=== PATIENT | female | born 2000 | race Two or more races ===

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

== ENCOUNTER 2021-02-11 16:09 | Emergency (ER) | payer MEDICAID, OTHER ==
[~2021-02-11] VITALS: Ht 152.4 cm; Wt 61.7 kg
[2021-02-11] MEDS ORDERED: AMOX875T2 PO (17:01)
--- NOTE | 2021-02-11 17:01 | NUR ---
Patient discharged to home in stable condition. Written and verbal after care instructions given. Patient verbalizes understanding of instructions. Stressed follow up or return to ER for worsening s/s.
== END 2021-02-11 17:05 | disposition home or self-care (01) ==
LOC: ER 16:09
DX: S09.22XA Traumatic rupture of left ear drum, initial encounter (principal); W26.8XXA Contact with other sharp object(s), not elsewhere classified, initial encounter; Y93.E8 Activity, other personal hygiene; Y92.89 Other specified places as the place of occurrence of the external cause
CPT/HCPCS: A4663

== ENCOUNTER 2021-05-07 16:24 | Emergency (ER) | payer MEDICAID ==
[~2021-05-07] VITALS: Ht 152.4 cm; Wt 64.9 kg
[~2021-05-07 16:24] MED LIST: AMOX875T2 PO
--- NOTE | 2021-05-07 16:46 | NUR ---
PATIENT WAS SEEN BY . URINE SENT TO LAB
[2021-05-07 17:06] LABS: BASOPHILS % (AUTO) 0.5 % (0.0-2.0); EOSINOPHILS # (AUTO) 0.1 K/uL (0.0-0.7); EOSINOPHILS % (AUTO) 0.7 % (0.0-7.0); HEMATOCRIT 41.4 % (31.2-41.9); HEMOGLOBIN 13.9 g/dL (10.9-14.3); LYMPHOCYTES # (AUTO) 2.9 K/uL (20.0-40.0); LYMPHOCYTES % (AUTO) 31.5 % (20.5-74.5); MEAN CORPUSCULAR HEMOGLOBIN 30.8 uug (24.7-32.8); MEAN CORPUSCULAR HGB CONC 34 g/dL (32.3-35.6); MEAN CORPUSCULAR VOLUME 91.8 fL (75.5-95.3); MONOCYTES # (AUTO) 0.9 K/uL (2.0-10.0); MONOCYTES % (AUTO) 9.6 % (0-11); NEUTROPHILS # (AUTO) 5.3 K/uL (1.8-8.9); NEUTROPHILS % (AUTO) 57.7 % (31.5-64.5); PLATELET COUNT (AUTO) 398 K/uL (179-408); RED BLOOD CELL COUNT(AUTO) 4.51 MIL/uL (3.63-4.92); WHITE BLOOD COUNT (AUTO) 9.1 K/uL (3.8-11.8)
[2021-05-07 17:08] LABS: CARBON DIOXIDE 31 mmol/L (21-32); CHLORIDE 104 mmol/L (98-107); CREATININE 0.7 mg/dL (0.6-1.3); GLUCOSE 89 mg/dL (74-106); UREA NITROGEN, BLOOD 9 mg/dL (7-18)
[2021-05-07 17:11] LABS: *BILIRUBIN,URIN NEGATIVE (NEGATIVE); *BLOOD, URINE NEGATIVE (NEGATIVE); *CLARITY,URINE SLIGHTLY CLOUDY (CLEAR); *COLOR,URINE LIGHT YELLOW (YELLOW); *KETONES,URINE NEGATIVE (NEGATIVE); *UROBILINOGEN,URINE 0.2 E.U./dl (NORMAL); LEUKOCYTE ESTERASE ,URINE NEGATIVE (NEGATIVE); NITRITE, URINE NEGATIVE (NEGATIVE); PH,URINE >=9.0 (5.0-8.0); UGLUCOSE NEGATIVE (NEGATIVE)
[2021-05-07 17:13] LABS: *URINE HCG, QUAL NEGATIVE (NEGATIVE)
[2021-05-07] MEDS ORDERED: CEFTRIAXONE 500 MG VIAL IM ONE (17:45)
[2021-05-07] MEDS ORDERED: LIDOCAINE HCL 1% 20 ML VIAL ONE (17:51)
[2021-05-07] MEDS ORDERED: CEFTRIAXONE 500 MG VIAL ONE (17:51)
[2021-05-07] MEDS ORDERED: DOXY100C41 PO (18:15)
[2021-05-07 18:24] LABS: BACTERIA,URINE NONE SEEN /HPF (NONE SEEN); RBC,URINE 0-3 /HPF (0-3); SQUAMOUS EPITHELIAL CELL,UR NONE SEEN /HPF (NONE SEEN); URINE AMORPHOUS PHOSPHATES MODERATE /HPF; WBC,URINE 0-3 /HPF (0-3)
--- NOTE | 2021-05-07 18:31 | NUR ---
DC, RX AND FOLLOW UP INSTRUCTIONS GIVEN AND EXPLAINED TO PATIENT WHO STATES SHE UNDERSTANDS ALL INSTRUCTIONS
== END 2021-05-07 18:32 | disposition home or self-care (01) ==
LOC: ER 16:26
DX: N72 Inflammatory disease of cervix uteri (principal); Z20.2 Contact with and (suspected) exposure to infections with a predominantly sexual mode of transmission
CPT/HCPCS: 36415; 80048; 81001; 84702; 84703; 85025; 86850; 86900; 86901; 87086; 87210; 87491; 96372; 99283; J0696; J3490; A4663

== ENCOUNTER 2024-08-23 23:22 | Emergency (ER) | payer OTHER ==
[~2024-08-23] VITALS: Ht 152.4 cm; Wt 78.5 kg
[~2024-08-23 23:22] MED LIST changes: +DOXY-326 PO
[2024-08-24] MEDS ORDERED: CYCLOBENZAPRINE HCL 10 MG TABLET ONE (00:20)
[2024-08-24] MEDS ORDERED: KETOROLAC TROMETHAMINE 30 MG INJ ONE (00:20)
[2024-08-24] MEDS ORDERED: IBUP-1955 PO (00:25)
[2024-08-24] MEDS ORDERED: CYCL5TAB PO (00:25)
[2024-08-24] MEDS: CYCLOBENZAPRINE HCL 10 MG TABLET PO ONE (00:30)
[2024-08-24] MEDS: KETOROLAC TROMETHAMINE 30 MG INJ IM ONE (00:30)
[2024-08-24 00:48] VITALS: BP 118/70; TEMP 97.7; O2SAT 98
== END 2024-08-24 00:40 | disposition home or self-care (01) ==
LOC: ER 23:37
DX: S06.0X0A Concussion without loss of consciousness, initial encounter (principal); S76.012A Strain of muscle, fascia and tendon of left hip, initial encounter; S76.011A Strain of muscle, fascia and tendon of right hip, initial encounter; S29.012A Strain of muscle and tendon of back wall of thorax, initial encounter; S13.4XXA Sprain of ligaments of cervical spine, initial encounter; R51.9 Headache, unspecified; F17.200 Nicotine dependence, unspecified, uncomplicated; Z79.1 Long term (current) use of non-steroidal anti-inflammatories (NSAID); Z79.899 Other long term (current) drug therapy; V89.2XXA Person injured in unspecified motor-vehicle accident, traffic, initial encounter; Y93.89 Activity, other specified; Y92.89 Other specified places as the place of occurrence of the external cause; Y99.8 Other external cause status
CPT/HCPCS: A4606; A4663; J1885